=== PATIENT | male | born 1985 | race Caucasian/White ===

== ENCOUNTER 2019-05-28 16:16 | Observation (INO) | payer OTHER, SELFPAY ==
[2019-05-28] VITALS (14 sets, daily range): BP systolic 121–167; BP diastolic 61–107; PULSE 74–113; RESP 16–27; TEMP 36.8; O2SAT 92–100; BMI 25.6; BMI 26.7
--- NOTE | 2019-05-28 | DI.RAD.S_ITS ---
PROCEDURE: XR SHOULDER LT MIN 2V INDICATIONS: POST REDUCTION TECHNIQUE: 2 views of the shoulder were acquired. COMPARISON: [facility], CR, XR SHOULDER LT MIN 2V, 05/28/2019, 16:23. FINDINGS: Bones: The left shoulder has been relocated. Comminuted fracture fragments are seen along the lateral/posterior aspect of the left humeral head. No definite bony Bankart fracture is seen. The visualized ribs are unremarkable. No suspicious lytic or blastic lesions are seen. Soft tissues: No suspicious soft tissue calcifications. The visualized lung demonstrates an unremarkable appearance. IMPRESSION: Shoulder relocation, with numerous comminuted fracture fragments of the posterior/lateral aspect of the humeral head. Dictated by: Octavio Brown M.D. on 05/28/2019 at 16:54 Approved by: Octavio Brown M.D. on 05/28/2019 at 16:55
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
[2019-05-28] MEDS: TET,DIPH,PERTUSS(ACELL),VAC/PF 0.5 ML SYRINGE IM (16:55)
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
[2019-05-28 17:43] LABS: Add Manual Diff / Slide Review NO; Basophils Absolute Auto 100 /uL (0-100); Basophils Percent Auto 0.7 % (0-2); Eosinophils Absolute Auto 100 /uL (0-450); Eosinophils Percent Auto 0.7 % (2-4); Hematocrit 46.8 % (41-53); Hemoglobin 16.1 g/dL (13.5-17.5); Lymphocytes Absolute Auto 1800 /uL (1100-4500); Lymphocytes Percent Auto 15.6 % (25-40); Mean Corpuscular HGB Conc 34.5 % (30-36); Mean Corpuscular Volume 86.9 fL (80-100); Monocytes Absolute Auto 700 /uL (0-900); Monocytes Percent Auto 6.3 % (3-14); Neutrophils Absolute Auto 8700 /uL (1500-7000); Neutrophils Percent Auto 76.7 % (50-75); Platelet Count 256 X10^3/uL (150-400); Red Blood Cell Count 5.38 X10^6/uL (4.5-5.9); Red Cell Distribution Width 13.2 % (11.6-14.8); White Blood Cell Count 11.4 X10^3/uL (4.5-11.0)
[2019-05-28] MEDS: LIDOCAINE 1% (PF) 4 ML INJ (17:51)
[2019-05-28] MEDS: PROPOFOL 200 MG/20 ML VIAL 100 MG IV (17:51)
--- NOTE | 2019-05-28 17:53 | PC.NURSE ---
Time out procedure conducted. Dr Contreras, this RN, RT and ELISA Toney in room. Propofol administered by Dr Contreras. pt tolerated well. Reduced. confirmed placement with XR. pt placed in sling. See procedural sedation documentation. frequent vitals. pt awake and alert. remains confused. Dr Contreras suturing pt's eyebrow and cheek. awaiting CT scan.
[2019-05-28 17:54] LABS: BUN Creatinine Ratio 22.5 (6-22); Blood Urea Nitrogen 18 mg/dL (9-20); Calcium 8.8 mg/dL (8.4-10.2); Carbon Dioxide 26 mmol/L (22-32); Chloride 105 mmol/L (98-107); Estimated Glomerular Filt Rate > 60.0 mL/min (>60); Glucose 121 mg/dL (70-100); HEMOLYSIS 24 (0-50); Potassium 3.7 mmol/L (3.4-5.1); Sodium 141 mmol/L (137-145)
--- NOTE | 2019-05-28 17:56 | DI.CT.S_ITS ---
PROCEDURE: CT UE LT WO CON INDICATIONS: Left humeral fracture TECHNIQUE: Noncontrast 1-1.5 mm thick sections acquired from the acromioclavicular joint to the inferior scapula, with coronal and sagittal reformatting. COMPARISON: [facility], CR, XR SHOULDER LT MIN 2V, 05/28/2019, 16:23. [facility], CR, XR SHOULDER LT MIN 2V, 05/28/2019, 17:36. FINDINGS: Image quality: Excellent. Bones: There is a comminuted facture of the humeral head with mildly displaced fracture fragments involve the greater trochanter. Suspect nondisplaced fracture of the anterior glenoid. Soft tissues: Soft tissue edema and small glenohumeral joint effusion. IMPRESSION: 1. Comminuted humeral head fracture. 2. Probable nondisplaced fracture of the anterior glenoid. Dictated by: Yaw Vega M.D. on 05/28/2019 at 18:34 Approved by: Yaw Vega M.D. on 05/28/2019 at 18:45
[2019-05-28] MEDS: PROPOFOL 200 MG/20 ML VIAL 50 MG IV (18:10)
[2019-05-28] MEDS: BACITRACIN OINT 0.9 GM PCKT 1 APPLIC TOP (18:14)
--- NOTE | 2019-05-28 18:57 | PC.NURSE ---
Pt remains confused, repetitive questions. bacitracin placed on sutures and covered with bandage. friend and mother at side, pt made aware of admission and agreeable.
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
[2019-05-28] MEDS: LACTATED RINGERS 1,000 ML 100 ML IV (21:45)
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
[2019-05-29] MEDS: ACETAMINOPHEN 325 MG TABLET 650 MG PO ×2 (00:06→06:08)
[2019-05-29] MEDS: ONDANSETRON 4 MG/2 ML INJ IV ×2 (00:10→06:09)
[2019-05-29] MEDS: KETOROLAC 30 MG/ML VIAL 15 MG IV ×2 (00:15→06:16)
[2019-05-29 00:44] VITALS: O2SAT 98
[2019-05-29 01:05] VITALS: BP 143/96; PULSE 109; RESP 16; TEMP 37.1; O2SAT 95
--- NOTE | 2019-05-29 04:13 | PC.NURSE ---
Pt VSS, lung sounds clear bilaterally, complains of right arm/shoulder pain 6/10, medicated w/ tylenol and toridol. Pt denies nausea or dizziness. Pt is able to ambulate to bedside commode. Pt is confused and has short term memory loss and repeats himself.
[2019-05-29 05:00] VITALS: BP 144/80; PULSE 95; RESP 18; TEMP 36.8; O2SAT 97
[2019-05-29] MEDS: LACTATED RINGERS 1,000 ML 100 ML IV (06:07)
[2019-05-29 06:08] LABS: Alanine Aminotransferase 57 IU/L (21-72); Albumin 4.3 g/dL (3.5-5.0); Albumin Globulin Ratio 1.3 (1.0-2.8); Alkaline Phosphatase 56 U/L (38-126); Aspartate Aminotransferase 37 IU/L (17-59); Bilirubin Total 0.6 mg/dL (0.2-1.3); Blood Urea Nitrogen 16 mg/dL (9-20); Calcium 9.3 mg/dL (8.4-10.2); Carbon Dioxide 26 mmol/L (22-32); Chloride 102 mmol/L (98-107); Estimated Glomerular Filt Rate > 60.0 mL/min (>60); Globulin 3.2 g/dL (1.7-4.1); Glucose 116 mg/dL (70-100); HEMOLYSIS < 15 (0-50); Potassium 3.8 mmol/L (3.4-5.1); Sodium 139 mmol/L (137-145); Total Protein 7.5 g/dL (6.3-8.2)
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
[2019-05-29 08:00] VITALS: BP 144/77; PULSE 91; RESP 16; TEMP 36.9; O2SAT 97
[2019-05-29 08:49] VITALS: O2SAT 97
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
--- NOTE | 2019-05-29 11:05 | PC.NURSE ---
Pt dressed and walked in the [place] with SBA. denies dizziness or nausea. Denies vision change or difficulty. Pt oriented x 3. Has OT orders and discharge orders. Pt states he feels like myself again.
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
--- NOTE | 2019-05-29 12:45 | CM.DANOTE ---
Discharge Planning/Care Management DCP: assessment: case received, EMR reviewed. Discussed in Team Rounds with PT requesting OT orders/done. Met later with pt. Introduced self and role. Pt is a 33 year old male who admitted to care of hospitalist team last night. Payer: Alvaro Stanford PCP: Dr. Tong Pt has been cleared medically for the home setting and is working with PT and OT before this. He will have sling in place on his L arm. He says he still cannot remember details of the accident and is not thinking as well as he was but they say that is to be expected at this point. 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 He then expects to work in more of an supervisory way while his arm heals. He also says he is comfortable returning to his home setting with the roommates. His mother was on her way here and was going to be present for all the d/c instructions. P: home today, clinic followup CM Discharge Assessment Start: 05/29/19 12:44 Freq: Status: Active Protocol: Document 05/29/19 12:44 ITV (Rec: 05/29/19 12:45 ITV [id number]) Discharge Planning Assessment Advance Directives? No Advance Directives on File No History Provided By Patient,Medical Record Has Patient been admitted in last 30 No days? Prior Living Arrangements House Comment lives with 2 roommates. Parents live in town. Household Members friend(s) Independent with ADL's Yes Is patient alert and oriented? Yes Review Status In Process
--- NOTE | 2019-05-29 12:49 | PC.NURSE ---
Pt is dressed and ready for discharge home with his mother Muna. Pt denies dizziness, confusion, vision changes, or pain at this time. Pt to follow up with Dr. Adair on Tuesday and will call to set his appointment and will follow up with Dr. Tong as needed. Reviewed d/c instructions for concussion, humeral fx and dislocation. Reminded Pt and Mother to call his MD or come in if any concerns of cognitive change. Pt and mother deny further questions and Pt was taken out via w/c by LABORATORY MACHINIST to POV with Mother and all belongings
--- NOTE | 2019-05-29 13:11 | OT.IP.EVAL ---
Current Diagnoses Concussion with loss of consciousness of unspecified duration, initial encounter (05/28/19) Anterior dislocation of left humerus, initial encounter (05/28/19) Other injury of unspecified body region, initial encounter (05/28/19) Past Medical History (Last Reviewed 05/29/19 @ 07:41 by Elliott Adair MD) Patient denies medical problems (Acute) Occupational Therapy Inpatient Evaluation/Re-Eval M1 PT/OT-IP Prior Functional Status Start: 05/29/19 12:44 Freq: NEEDED Status: Active Protocol: Document 05/29/19 12:44 [facility] (Rec: 05/29/19 13:09 [facility] [id number]) Medical Review Prior Functional Status Medical History Reviewed Yes Diet/Fluid Consistency Regular Communication Pt communicates with no deficits. Since accident, he has been repeating himself frequently. Mobility and Gait Pt was completely independent with all functional mobility without assistive device. Activities of Daily Living and IADL's Pt was independent for all ADL /IADL's Social History Household Members friend(s) Living Arrangements House Number of Floors (Floors) 3 or More Floors Number of Stairs To Enter/Railing? 2 ROSANNE with bilateral railings. 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 M2 OT-IP Current Condition Start: 05/29/19 12:44 Freq: Status: Active Protocol: Document 05/29/19 12:44 [facility] (Rec: 05/29/19 13:09 [facility] [email or web address]) Occupational Therapy Current Condition Current Condition Evaluation Date 05/29/19 Treatment Diagnosis Left comminuted proxiaml humerus fx, decreased self- care Diagnosis Onset Date 05/28/19 Post Operative Precautions Shoulder Precautions Sling,Internal Rotation to Body,No External Rotation,No Abduction Other Precautions Sling off for showers as can dangle left arm out of sling. ROM to elbow several times a day with sling off. Weight Bearing Status Weight Bearing Status Non-Weight Bearing M3 OT- IP Subjective and Pain Start: 05/29/19 12:44 Freq: Status: Active Protocol: Document 05/29/19 12:44 [facility] (Rec: 05/29/19 13:09 [facility] [email or web address]) OT- Subjective Occupational Therapy Visit Type Type Initial Evaluation Visit Start Time 11:30 Visit Stop Time 12:13 Total Visit Minutes 43 Occupational Therapy Visit Comments Patient Comments Pt agreeable to do OT eval. Patient/Caregiver Goals To go home. OT Pain Assessment Pain When Pain Assessed At Rest Pain Present Pain Present Denied Pain M4 OT- IP ADL's Start: 05/29/19 12:44 Freq: Status: Active Protocol: Document 05/29/19 12:44 [facility] (Rec: 05/29/19 13:09 [facility] [email or web address]) OT LVR-Pybg-Sqlwheh General Evaluation Self-Feeding Ability Standby Assistance Areas Needing Assistance Opening Containers Comments OT Self-Feeding Comments Pt needing assist to open milk carton. OT ADL-Dressing General Eval Upper Body Dressing Ability Moderate Assistance Comments OT Dressing Comments Pt needing SHEKHAR to MODA for sling management needs. Pt able to states good safety to mena/doff sling however has trouble to reach the straps. Pt's mother present during education of sling. OT ADL-Toileting Comments OT Toileting Comments Pt states usually uses his left hand for wiping, educated may have to stand to wipe. When suggested to take urinal home, pt refusing. OT ADL-Bathing Comments OT Bathing Comments Pt already dressed and ready to go home. Suggested to have mom present and may want to have a shower chair to sit and shower if needed for safety, otherwise right arm can be taken out of the sling to dangle for showering needs. M5 OT- IP IADL's Start: 05/29/19 12:44 Freq: Status: Active Protocol: Document 05/29/19 12:44 [facility] (Rec: 05/29/19 13:09 [facility] [email or web address]) OT-Instrumental Activities of Daily Living Home Safety Awareness Home Safety Comments At this time pt will need assist for IADL needs, in addition assist /supervision for finances and medications as currently having difficulties with his memory, executive thinking and processing. Driving Driving Concerns Identified Regarding Safety Driving Comments At this time not suggested for pt to drive and to see his doctor prior to getting back to driving. M6 OT- IP Functional Cognition Start: 05/29/19 12:44 Freq: Status: Active Protocol: Document 05/29/19 12:44 [facility] (Rec: 05/29/19 13:09 [facility] [email or web address]) Cognitive Factors Limiting Selfcare Function Cognitive Ability Level of Alertness Alert Patient Orientation Name,Year,Day of Week,Place, Situation Attention Span Ability Capable of Focused Attention, Capable of Sustained Attention Ability to Follow Commands Able to Follow One Step Commands Memory Description Short Term Impaired,Working Impaired Safety Awareness Underestimates Need for Assistance Problem Solving Ability Needs Assist to Identify Solutions Executive Function Ability Unable to Hold Focus,Unable to Filter Distractions,Unable to Organize Plans,Unable to Remember Details Cognitive Tests SLUMS Pt scored 16/30 which indicated cognitive deficits as normal score for pt's education is 27/30. Pt feels that is attributed to him not sleeping. Pt having trouble with short term memory tasks, addition of two number digits, unable to draw a clock accurately, and only able to answer 2/4 question correctly after a paragraph read. Cognitive Comments Cognitive Assessment Comments Pt completed [place] Making Part B but did not realize that he made a mistake, and went from 6-G versus 6-F. At this time time suggested no driving. In addition suggested at this time best for pt to go to his mother's house in stead of home with roommates who are not there to assist at all times. At this time recommend that pt have at least supervision for all ADL and IADL needs. OT- Vision and Hearing OT- Hearing Assessment OT- Hearing Assessment WFL OT- Vision Assessment Visual Acuity Contact Lenses M7 OT- IP Mobility and Balance Start: 05/29/19 12:44 Freq: Status: Active Protocol: Document 05/29/19 12:44 [facility] (Rec: 05/29/19 13:09 [facility] [email or web address]) OT- Bed Mobility Assessment Rolling Level of Assistance Independent Supine to Sit Supine to Sit Assist Independent Sit to Supine Sit to Supine Assist Independent OT-Transfer Assessment Sit to and From Stand Sit to and from Stand Independent Transfers Transfer Ability Independent Technique Transfer Destination Bed,Chair Devices Transfer Assistive Devices None Comments Mobility Comments Pt able to independently move in the room. Pt educated to get in and out of the bed from the right side and to have pillow to help support his left arm while in bed and when sitting upright in a chair. OT- Balance Assessment Sitting Balance and Reactions Static Sitting Balance Ability Normal Dynamic Sitting Balance Ability Normal Standing Balance and Reactions Static Standing Balance Ability Normal M8 OT- IP Objective Assessments Start: 05/29/19 12:44 Freq: Status: Active Protocol: Document 05/29/19 12:44 [facility] (Rec: 05/29/19 13:09 [facility] [email or web address]) OT Gross Range of Motion Upper Extremity Range of Motion Assessment Left Impaired OT Strength Upper Extremity Strength Assessment Left Impaired M9 OT- IP Assessment and Plan Start: 05/29/19 12:44 Freq: Status: Active Protocol: Document 05/29/19 12:44 [facility] (Rec: 05/29/19 13:09 [facility] [email or web address]) OT Summary Assessment and Plan Potential Rehabilitation Potential Excellent Analytic Complexity at Evaluation Low Summary OT Impairments Functional Cognition,Dressing, Toileting,Bathing Progress Towards Goals Progressing Toward Goals Assessment Summary Pt low complexity and main barrier having difficulty with functional cognition, needing increased time to problem solve and at time unable to answer questions, and also needing assist for sling management needs. At this time recommended pt to stay with his mother and also suggesting no driving at this time. Goals Dressing Goal Independent Toileting Goal Independent Bathing Goal Standby Assistance Toilet Transfer Goal Independent Shower Transfer Goal Standby Assistance Patient/Caregiver Education Goal Demonstrate Post-Op Precautions,Caregiver Independent Assisting Patient Days to Meet Goals 1 Frequency of Treatment Frequency Of Treatment Once a Day Treatment Plan OT Treatment Plan ADL Training,Functional Cognition Training,Patient/ Family Education,Discharge Planning Discharge Recommendations OT Discharge Recommendations Home with Assistance Home Equipment Needs shower chair
--- NOTE | 2019-06-10 13:43 | PC.NURSE ---
Late Entry: late entry related to critical care time. Critical care time started on pt arrival at 16:20 to the end of procedural sedation at 17:50 resulting in a total of 90 minutes.
== END 2019-05-29 12:52 | disposition home or self-care (01) ==
LOC: ED 18:43 → AC 20:35
PROVIDERS: Emergency Medicine; Admitting Provider Nurse Practitioner Family; Emergency Provider Emergency Medicine; Referring Provider Surgery; Visit Provider Orthopaedic Surgery
DX: S06.0X9A Concussion with loss of consciousness of unspecified duration, initial encounter (principal); S42.352A Displaced comminuted fracture of shaft of humerus, left arm, initial encounter for closed fracture; S43.015A Anterior dislocation of left humerus, initial encounter; S01.112A Laceration without foreign body of left eyelid and periocular area, initial encounter; Y93.55 Activity, bike riding; Z23 Encounter for immunization
CPT/HCPCS: 12014; 23605; 36415; 70450; 73030; 73070; 73200; 80048; 80053; 85025; 90471; 94770; 96360; 96361; 96374; 96376; 97161; 97165; 97530; 97535; 99152; 99225; 99285; 99291; 99292; G0378; 90715; J1885; J2405; J2704

== ENCOUNTER 2019-06-07 06:02 | Day surgery (SDC) | payer OTHER, SELFPAY ==
[2019-05-28 20:50] VITALS: BMI 26.7
[2019-06-05 07:53] VITALS: BMI 25.7
[2019-06-07] VITALS (8 sets, daily range): BP systolic 106–153; BP diastolic 60–99; PULSE 90–97; RESP 12–20; TEMP 36.6–36.9; O2SAT 92–97; BMI 25.7
--- NOTE | 2019-06-07 | DI.RAD.S_ITS ---
PROCEDURE: XR SHOULDER LT MIN 2V INDICATIONS: ORIF OF PROXIMAL HUMERUS TECHNIQUE: 2 views of the shoulder were acquired. COMPARISON: [facility], CR, XR SHOULDER LT MIN 2V, 05/28/2019, 17:36. FINDINGS: Bones: Postsurgical changes compatible with ORIF of proximal left humerus fracture noted. There is anatomic alignment of fracture fragments following placement of orthopedic plate and screws. Soft tissues: No suspicious soft tissue calcifications. IMPRESSION: Anatomic alignment following ORIF of proximal left humerus fracture. Dictated by: Adia Jacinto MD, PhD on 06/07/2019 at 13:02 Approved by: Adia Jacinto MD, PhD on 06/07/2019 at 13:03
[2019-06-07] MEDS: LACTATED RINGERS 1,000 ML 42 ML IV (07:10)
--- NOTE | 2019-06-07 07:38 | PM.PREOP ---
Pre-operative Note Interval Note History & Physical reviewed/Exam performed by Physician: Yes Changes to H&P: No
[2019-06-07] MEDS: MIDAZOLAM 2 MG/2 ML VIAL IV (07:44)
[2019-06-07] MEDS: fentaNYL 100 MCG/2 ML INJ 50 MCG IV (07:46)
--- NOTE | 2019-06-07 08:00 | SUR.PREOP ---
Block start time [0746] . Monitoring initiated and maintained throughout procedure. Oxygen and medications given per anesthesiologist instructions. Patient remained stable throughout procedure, no adverse reactions noted. Block end time [0758].
[2019-06-07] MEDS: CEFAZOLIN 2 GM/100 ML FROZ.PIGGY IV (08:02)
--- NOTE | 2019-06-07 08:40 | SUR.OPER ---
Beach chair with skytron bed shoulder positioner. Lower body on padded OR bed. Head in foam padded head cradle, secured with straps. Non-operative arm secured <90 degrees abduction. Pillow under knees. Safety belt at thigh. Cloth tape over blanket over lower legs.
--- NOTE | 2019-06-07 08:53 | SUR.OPER ---
bruising of the left shoulder posteriorly from mid humerus to scapula left, bruising of left pectoris, bruising of the left eye
[2019-06-07] MEDS: LIDOCAINE 1% W/EPI 20 ML INJ (08:59)
--- NOTE | 2019-06-07 09:51 | PM.OP.1 ---
Operative Date/Time/Diagnoses Date of procedure: 06/07/19 Time of procedure: 08:00 Pre-op diagnosis: left shoulder fracture dislocation Post-op diagnosis: same Procedure & Clinicians Procedure: open reduction internal fixation of a left proximal humerus fracture closed reduction without manipulation of a glenoid neck fracture Same procedure as scheduled: Yes Indications: left shoulder fracture dislocation Surgeon: Last [facility] Analyst: Heather Gupta Click Yes if Unassisted: No Anesthesia Type: General and Peripheral nerve block Operative Notes Findings: displaced greater tuberosity fracture that was fragmented into multiple pieces. Nondisplaced humeral neck fracture. Nondisplaced glenoid fracture Closure Type: primary Specimen(s): none sent Prosthetic devices, grafts, tissues, transplants, or devices: Medel and Nephew proximal humerus plate Applied: implant(s) Estimated Blood Loss (mL): 50 Blood products transfused: none Procedure in detail: On date of service, patient was met in the holding area. The surgeries once again discussed with the patient and any remaining questions or concerns that he had were answered fully. Patient was taken back to the operating theater and placed on the operating table in a supine position. Time-out was performed previously verifying patient's name, procedure, and operative site. Patient was placed into the beach chair position great care was taken to ensure that the head and neck were appropriately positioned and secured. The left arm was then prepped and draped in the normal sterile fashion. A deltopectoral approach was performed. Ten blade was used to incise through skin and fascial tissue. Electrocautery was used to achieve hemostasis. Gelpi retractors were then placed. Deep knife was used to continue the dissection. Then Metzenbaum scissors were used to bluntly dissect until the cephalic vein was identified. It was then freed throughout the course of the incision. This allowed us access to the deltopectoral interval. Pectoralis was taken medially why the deltoid was taken laterally giving us good visualization of the proximal humerus. Biceps tendon was found distally and dissected through the bicipital groove. There is quite a bit of hematoma in the shoulder joint as well as around the fracture. This was decompressed and irrigated out removing all coagulated hematoma. We then turned our attention to the fracture. 2. FiberWire was placed into the supraspinatus allowing us to reduce the multiple fragments of the greater tuberosity. There was another fragment that was anterior but lateral to the bicipital groove. This did not have any cuff tissue attached to it. Using the suture we were able to reduce the fragments of the greater tuberosity. These were held provisionally with K-wires. C-arm was brought in to verify the overall reduction of the tuberosity. Patient also had a neck fracture which was nondisplaced And seemed to be relatively stable. Next, short proximal humerus plate was provisionally fixated to the fracture and proximal humerus using K-wires. C-arm was brought in and multiple views were obtained verifying plate positioning as well as overall reduction. Once we were satisfied with our overall reduction and plate positioning, the plate was then secured both distally and proximally providing a secure fixation of the tuberosity fragments as well as the neck fracture. Final x-rays were obtained demonstrating good reduction and plate positioning as well as the fact that none of the screws were intra-articular. Shoulder was stressed under live fluoro and there was no sign of any subluxation or dislocation. No motion at the glenoid either. The wound was then copiously irrigated. 2. FiberWire was placed through some of the suture holes in the plate to reinforce the fixation of the most anterior greater tuberosity fragment. Next the rest of the wound was closed in layered fashion. Patient's shoulder was cleaned, dried, and dressed. He was extubated and taken to the PACU in stable condition. Complications: none Post-operative Condition: stable Disposition: PACU Plan for aftercare: sling will mainly just be for comfort. Okay for patient to engage in range of motion exercises. Needs to avoid provocative maneuvers for dislocation.
[2019-06-07] MEDS: OXYCODONE/ACETAMINOPHEN 5/325 TABLET 1 TAB PO (11:21)
--- NOTE | 2019-06-07 12:49 | SUR.PHASEII ---
Discharge instructions discussed by CINDY Marquez. Andreina helped pt get dressed. Pt left when ready and left in stable condition. Pt escorted to BR to void prior to D/C
== END 2019-06-07 12:30 | disposition home or self-care (01) ==
PROVIDERS: PCP Family Medicine; Visit Provider Orthopaedic Surgery
PROC: (CPT 23615; principal; 2019-06-07 07:45)
DX: S42.252A Displaced fracture of greater tuberosity of left humerus, initial encounter for closed fracture (principal); S42.145A Nondisplaced fracture of glenoid cavity of scapula, left shoulder, initial encounter for closed fracture; S43.085A Other dislocation of left shoulder joint, initial encounter; G89.18 Other acute postprocedural pain; V19.9XXA Pedal cyclist (driver) (passenger) injured in unspecified traffic accident, initial encounter
CPT/HCPCS: 23615; 23585; 64415; 64450; 73030; 76000; J0690; J1100; J2250; J2405; J2704; J3010

== ENCOUNTER 2023-08-08 23:50 | Emergency (ER) | payer OTHER, SELFPAY ==
[2021-10-05 12:05] VITALS: BMI 26.7
[2023-08-09] VITALS: BP 150/102; PULSE 96; RESP 18; TEMP 36.6; O2SAT 97; BMI 23.7
[2023-08-09] MEDS: BENZONATATE 100 MG CAPSULE PO (00:39)
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
[2023-08-09 01:12] LABS: Influenza A - CEPHEID Flu A NEGATIVE (NEGATIVE); Influenza B - CEPHEID Flu B NEGATIVE (NEGATIVE); Respiratory Syncytial Virus Negative (Negative)
[2023-08-09 01:42] LABS: COVID-19 CEPHEID 4-PLEX PCR Negative (Negative)
[2023-08-09 01:57] VITALS: BP 144/92; RESP 18; TEMP 36.7; O2SAT 97
[2023-08-09] MEDS: ALBUTEROL HFA PREPACK 1 BOX MISC (01:59)
== END 2023-08-09 02:13 | disposition home or self-care (01) ==
PROVIDERS: Emergency Provider Emergency Medicine; PCP Family Medicine
DX: J06.9 Acute upper respiratory infection, unspecified (principal); R05.1 Acute cough; R09.82 Postnasal drip; R53.83 Other fatigue; Z20.822 Contact with and (suspected) exposure to COVID-19
CPT/HCPCS: 0241U; 99283

== ENCOUNTER → 2025-07-24 14:46 | Outpatient (CLI) | payer OTHER, SELFPAY ==
[2021-10-05 12:05] VITALS: BMI 26.7
--- NOTE | 2025-07-24 14:47 | DI.ECHO.S_ITS ---
[facility] : : [id number] : : [place] : : [id number] : : Phone: [phone] Echocardiogram Report + + :Name: OMER PEREZ Study Date: 07/24/2025 Height: 73 in : :[facility] ReadingLocation: Weight: 208 lb : : Gender: Male BSA: 2.2 m2 : :: 1985 Age: 39 yrs BP: 146/96 mmHg: :Reason For Study: Hypertension : :Ordering Physician: PRECIOUS, : :MAE Performed By: Trever Sheldon : :Referring: MAE LANG : + + Interpretation Summary Normal sinus rhythm. Heart rate is 99-103 bpm during the exam. Normal LV size and mildly increased wall thickness. Normal wall motion and LV systolic function. Ejection fraction is 60-65%. Normal chamber sizes. No significant valvular abnormalities. Procedure: A two-dimensional transthoracic echocardiogram with color flow and Doppler was performed. The study quality was technically adequate. There is no prior echocardiogram noted for this patient. The patient was in normal sinus rhythm during the exam. Left Ventricle: The left ventricle is normal in size. There is mild concentric left ventricular hypertrophy. Left ventricular systolic function is normal. The ejection fraction is estimated to be 60-65%. There are no focal wall motion abnormalities. Normal diastolic function. Right Ventricle: The right ventricle is normal in size and function. Atria: The left atrial size is normal. Right atrial size is normal. There is no Doppler evidence for an interatrial shunt. Mitral Valve: The mitral valve leaflets appear to open well. There is no mitral valve stenosis. There is no mitral regurgitation noted. Aortic Valve: The aortic valve is trileaflet. The aortic valve opens well. There is no aortic valve stenosis. No aortic regurgitation is present. Tricuspid Valve: The tricuspid valve leaflets are thin and pliable. There is trace tricuspid regurgitation. Pulmonary artery pressures cannot be estimated because of the lack of a measurable TR jet velocity but the IVC suggests a CVP of around 3 mmHg. Pulmonic Valve: The pulmonic valve is not well seen, but is grossly normal. There is a trace or physiologic amount of pulmonic regurgitation. Great Vessels: The aortic root is normal size. The ascending aorta is normal in size. The aortic arch could not be visualized. The pulmonary artery is normal size. The IVC is of normal diameter and collapses greater than 50% with a sniff. This suggests a low right atrial pressure of 3 mm Hg. Pericardium/ Pleura There is no pericardial effusion. MMode/2D Measurements & Calculations LVIDd: 5.0 cm LVOT diam: 2.2 cm LVIDs: 3.6 cm Ao root diam: 3.6 cm FS: 29.5 % asc Aorta Diam: 3.0 cm IVSd: 1.1 cm LVPWd: 1.1 cm LV lowe. diameter/BSA (cm/m^2): 2.3 LV sys. diameter/BSA (cm/m^2): 1.6 LA A2 area: 18.7 cm2 RA long axis: 4.8 cm LA A4 area: 15.6 cm2 RA area: 11.6 cm2 LA length (vol): 5.2 cm RA vol: 23.8 ml LA vol: 47.4 ml RA : 10.9 ml/m2 LA vol index: 21.7 ml/m2 IVC diam: 1.1 cm RVD1 (basal): 2.8 cm RVD2 (mid): 2.5 cm TAPSE: 2.1 cm Doppler Measurements & Calculations Ao V2 max: 110.2 cm/sec LVOT Max Min: 104.8 cm/sec Ao V2 mean: 80.3 cm/sec LV V1 max P.4 mmHg Ao max P.9 mmHg LV V1 VTI: 15.2 cm Ao mean P.8 mmHg FLOWER(I,D): 3.7 cm2 Ao V2 VTI: 16.3 cm FLOWER(V,D): 3.8 cm2 sev ratio: 0.93 FLOWER indexed to BSA (cm^2/m^2): 1.7 MV E max min: 54.2 cm/sec SV(LVOT): 60.0 ml MV A max min: 60.3 cm/sec MV E/A: 0.90 Med Peak E' Min: 6.0 cm/sec E/E' med: 9.1 Lat Peak E' Min: 9.0 cm/sec E/E' lat: 6.0 E/e' average: 7.6 MV dec time: 0.18 sec Electronically signed by: Jannette Matthews M.D. on Reading Physician:07/24/2025 04:43 PM
== END ==
LOC: ECHO 14:47
PROVIDERS: PCP Student in an Organized Health Care Education/Training Program; Referring Provider Student in an Organized Health Care Education/Training Program; Visit Provider Student in an Organized Health Care Education/Training Program
DX: I10 Essential (primary) hypertension (principal); M54.50 Low back pain, unspecified
CPT/HCPCS: 72100; 93306

== ENCOUNTER → 2025-07-24 15:15 | Outpatient (CLI) | payer OTHER, SELFPAY ==
[2021-10-05 12:05] VITALS: BMI 26.7
--- NOTE | 2025-07-24 15:18 | DI.RAD.S_ITS ---
PROCEDURE: XR LUMBAR SPINE 2-3V INDICATIONS: low back pain TECHNIQUE: 3views of the lumbar spine were acquired. COMPARISON: None. FINDINGS: Bones: 5 [id number] vertebrae are present. There is normal bony alignment. No vertebral body compression fractures. No suspicious bony lesions. Soft tissues: Overlying bowel gas pattern is normal. No suspicious soft tissue calcifications. IMPRESSION: No acute bony abnormality. Dictated by: Dc Rodgers M.D. on 07/29/2025 at 11:01 Approved by: Dc Rodgers M.D. on 07/29/2025 at 11:01
== END ==
LOC: RAD 15:17
PROVIDERS: PCP Student in an Organized Health Care Education/Training Program; Referring Provider Student in an Organized Health Care Education/Training Program; Visit Provider Student in an Organized Health Care Education/Training Program
DX: M54.50 Low back pain, unspecified (principal)
CPT/HCPCS: 72100

== ENCOUNTER → 2025-07-27 07:56 | Outpatient (CLI) | payer OTHER, SELFPAY ==
[2021-10-05 12:05] VITALS: BMI 26.7
[2025-07-27 08:55] LABS: Influenza A - CEPHEID Flu A NEGATIVE (NEGATIVE); Influenza B - CEPHEID Flu B NEGATIVE (NEGATIVE)
[2025-07-27 08:56] LABS: COVID-19 CEPHEID 4-PLEX PCR Negative (Negative)
== END ==
PROVIDERS: PCP Student in an Organized Health Care Education/Training Program; Visit Provider Nurse Practitioner Family
DX: R05.1 Acute cough (principal)
CPT/HCPCS: 87637

== ENCOUNTER → 2025-07-27 08:16 | Outpatient (CLI) | payer OTHER, SELFPAY ==
[2021-10-05 12:05] VITALS: BMI 26.7
--- NOTE | 2025-07-27 08:18 | DI.RAD.S_ITS ---
PROCEDURE: XR CHEST 2V INDICATIONS: Cough TECHNIQUE: 2 views of the chest were acquired. COMPARISON: None. FINDINGS: Surgical changes and devices: None. Lungs and pleura: Right lung appears clear. Left lower lobe consolidation. No pleural effusions or pneumothorax. Mediastinum: Mediastinal contours are normal. Heart size is normal. Bones and chest wall: No suspicious bony abnormalities. Soft tissues appear unremarkable. IMPRESSION: Left lower lobe pneumonia. Recommend follow up chest radiograph 4-6 weeks after treatment to document resolution of findings and/or return to baseline examination. Dictated by: Armando Swann M.D. on 07/27/2025 at 11:47 Approved by: Armando Swann M.D. on 07/27/2025 at 11:48
== END ==
LOC: RAD 08:18
PROVIDERS: PCP Student in an Organized Health Care Education/Training Program; Referring Provider Nurse Practitioner Family; Visit Provider Nurse Practitioner Family
DX: J18.9 Pneumonia, unspecified organism (principal); R05.1 Acute cough
CPT/HCPCS: 71046; 87637

== ENCOUNTER → 2025-08-03 07:57 | Outpatient (CLI) | payer OTHER, SELFPAY ==
[2021-10-05 12:05] VITALS: BMI 26.7
[2025-08-03 10:17] LABS: Add Manual Diff / Slide Review NO; Hematocrit 44.5 % (41-53); Hemoglobin 15.5 g/dL (13.5-17.5); Lymphocytes Absolute Auto 1800 /uL (1100-4500); Mean Corpuscular HGB Conc 34.8 % (30-36); Mean Corpuscular Hemoglobin 29.9 PG (26-34); Mean Corpuscular Volume 85.9 fL (80-100); Platelet Count 395 X10^3/uL (150-400)
[2025-08-03 10:26] LABS: Hemoglobin A1C% w Est Avg Glu 5.3 % (4.0-6.0)
[2025-08-03 10:33] LABS: Alanine Aminotransferase 99 IU/L (<50); Alkaline Phosphatase 72 U/L (38-126); Blood Urea Nitrogen 16 mg/dL (9-20); Calcium 9.4 mg/dL (8.4-10.2); Chloride 104 mmol/L (98-107); Cholesterol 193 mg/dL (140-199); Estimated Glomerular Filt Rate > 60 mL/min (>60); Glucose 97 mg/dL (70-99); HDL Cholesterol 33 mg/dL (40-60); HEMOLYSIS < 15 (0-50); Potassium 4.6 mmol/L (3.4-5.1); Sodium 141 mmol/L (137-145); Total Protein 7.8 g/dL (6.3-8.2); Triglycerides 205 mg/dL (35-150)
[2025-08-03 10:34] LABS: Albumin 4.4 g/dL (3.5-5.0); Albumin Globulin Ratio 1.3 (1.0-2.8); Carbon Dioxide 24 mmol/L (22-32); Globulin 3.4 g/dL (1.7-4.1)
[2025-08-03 11:01] LABS: Thyroid Stimulating Hormone 1.12 uIU/mL (0.47-4.68)
[2025-08-03 11:55] LABS: Microalbumi Creatinin Ratio Ur 16.0 ug/mg CR (<30)
== END ==
PROVIDERS: PCP Student in an Organized Health Care Education/Training Program; Referring Provider Student in an Organized Health Care Education/Training Program; Visit Provider Student in an Organized Health Care Education/Training Program
DX: I10 Essential (primary) hypertension (principal)
CPT/HCPCS: 36415; 80053; 80061; 82043; 82570; 83036; 84443; 85025